=== PATIENT | female | born 1980 ===

== ENCOUNTER 2024-03-26 10:43 | Emergency (ER) | payer BC, SELFPAY ==
[2024-03-26 11:02] VITALS: BP 110/80
--- NOTE | 2024-03-26 12:09 | ED.GENMED ---
History of Present Illness
General
Chief Complaint: Back Pain
Source: patient
Time Seen by Provider: 03/26/24 11:53
History of Present Illness
History of Present Illness:
43-year-old female with past medical history of hypothyroidism presenting to the ER via EMS from [facility] urgent care for evaluation after she had a syncopal episode at their facility earlier today. Patient has been experiencing some right sided lower
back pain that is typical of her usual sciatica that she notes will intermittently flare and has been something that she has been dealing with from her college days. Patient notes that she is had relief from cyclobenzaprine and prednisone but ran
out of the cyclobenzaprine from the last time she had this issue so went to the urgent care today in hopes to get this prescription refilled. Patient notes that in order to try and help the pain they had put on a lower back brace to help with her
pain but patient states that shortly after getting the brace put on and while standing upwards she started to feel near syncopal. Patient became very diaphoretic and lightheaded. She reports that staff was attempting to take her blood pressure and
noticed this was very low and the urgent care had contacted an ambulance to bring the patient to the [facility]. Patient ultimately stated she did not wish to go in the ambulance but because they had already called the ambulance decided to come to the
ER for evaluation. Patient reports she is fully asymptomatic at this time.
Past History
Past History
ED Past Medical History: Hypothyroidism and Psychiatric
ED Past Surgical History: Gynecological and Other
Social History
Tobacco: Non-smoker
Alcohol: Occasional
Drug: None
Personal:
Living: with family
Employment: Employed
Review of Systems
Review of Systems
All Other Systems: ROS reviewed and negative except as documented in HPI and ROS
Phy Exam
Physical Exam
Physical Exam:
GENERAL: Alert , in no apparent distress
EYE: conjunctiva clear
NECK: Supple
ENT: o/p clr, mmm.
CARDIAC: Regular rate and rhythm
LUNGS: Clear breath sounds bilaterally, no acute respiratory distress, no wheezes/rales/rhonchi
NEUROLOGICAL: Alert and oriented
SKIN: Warm and dry, skin intact.
MUSCULOSKELETAL: well perfused.
PSYCH: Normal and appropriate interaction.
Scores
Heart Failure Risk
Heart Failure Risk Score: Not Applicable
Heart Score for Chest Pain Patients
STEMI patient?: Not applicable
Withdrawal Assessment of Alcohol
Withdrawal Assessment Completed?: Not applicable
Course
Vital Signs
Initial and Last Documented VS:
Initial Vital Signs
Temp Pulse Resp BP Pulse Ox
98.3 F 80 16 110/80 100
03/26/24 11:02 03/26/24 11:02 03/26/24 11:02 03/26/24 11:02 03/26/24 11:02
Last Documented Vital Signs
Temp Pulse Resp BP Pulse Ox
98.3 F 80 16 110/80 100
03/26/24 11:02 03/26/24 11:02 03/26/24 11:02 03/26/24 11:02 03/26/24 11:02
MDM/Problems Addressed
Differential Diagnosis Includes:
Vagal event, orthostasis, I did consider dissection given the near syncope and back pain however patient's back pain is the exact pain that she has had multiple times in the past and had a prodromal symptom secondary to the pain prior to having the
near syncopal event
MDM/Problems Addressed:
43-year-old female presenting to the emergency department for evaluation after having a syncopal event at local urgent care. She has been also dealing with some right-sided lower back pain typical of her usual sciatica. Patient does report that
she was given the prescription for the cyclobenzaprine and prednisone. At this time I am most suspicious for orthostasis or vagal event as the cause of her symptoms. She is completely asymptomatic hemodynamically stable. At this time I do feel it
is reasonable for patient to be discharged home. Advised on return precautions to the ER.
*Pulse Oximetry
Patient hypoxic: no
*Critical Care Note
Total Time (30-74mins, 75-104mins- exclusive of procedures): Not Applicable
ED Attending Note
-
Portions of this chart may have been created with voice recognition software.� Occasional wrong word or��sound alike� substitutions may have occurred due to the inherent limitations of voice recognition software.
Discharge Plan
Departure
Patient Disposition: Home (Routine Discharge)
Date of Disposition: 03/26/24
Time of Disposition: 12:10
Patient with high blood pressure during this ER visit?: No
Discharge Problem:
Vagal reaction
Instructions: Vasovagal Response (DC)
Prescriptions:
No Action
progesterone [Progesterone in Oil] 50 mg/mL Oil
100 mg IM DAILY
progesterone micronized 200 mg Capsule
200 mg PO HS
dextroamphetamine-amphetamine [Adderall] 15 mg Tablet
15 mg PO DAILY
estradiol [Estrace] 2 mg Tablet
4 mg PO DAILY
Compound Progesterone
1 supp IA TID
Interventions
Interventions:
*Risk Screen - Suicide Last Done: 03/26/24 11:02
*General Assessment Last Done: 03/26/24 11:02
*Neglect/Abuse Screening Last Done: 03/26/24 11:50
*ED COVID-19 Vaccine History Last Done: 03/26/24 11:02
*Nursing Disposition Last Done: 03/26/24 12:28
ED-Musculoskeletal Assessment Last Done: 03/26/24 12:27
Discharge Date and Time
Discharge Date/Time: 03/26/24 12:33
Print Language: BOLIVIAN
== END 2024-03-26 12:33 | disposition home or self-care (01) ==
LOC: EMR 10:43
PROVIDERS: EMERGENCY PHYSICIAN Emergency Medicine; FAMILY PHYSICIAN Family Medicine
DX: R55 Syncope and collapse (principal); M54.41 Lumbago with sciatica, right side; E03.9 Hypothyroidism, unspecified
CPT/HCPCS: 99282